=== PATIENT | female | born 1950 | race Caucasian/White ===

== ENCOUNTER 2019-04-10 11:12 | Emergency (ER) | payer OTHER ==
[~2019-04-10] VITALS: Ht 162.6 cm; Wt 63.5 kg
[2019-04-10] MEDS ORDERED: LISINOPRIL20 MG (11:24)
== END 2019-04-10 13:45 | disposition home or self-care (01) ==
LOC: ER 11:12
DX: S93.491A Sprain of other ligament of right ankle, initial encounter (principal); S40.011A Contusion of right shoulder, initial encounter; W01.198A Fall on same level from slipping, tripping and stumbling with subsequent striking against other object, initial encounter; Y93.89 Activity, other specified; Y92.832 Beach as the place of occurrence of the external cause; Y99.8 Other external cause status